=== PATIENT | female | born 1985 | race Caucasian/White ===

== ENCOUNTER 2017-11-06 05:26 | Day surgery (SDC) | payer BC, OTHER ==
[2017-11-04 11:58] LABS: APPEARANCE,URINE SLIGHTLY-CLOUDY; BILIRUBIN,URINE NEGATIVE (NEGATIVE); GLUCOSE, URINE NEGATIVE (NEGATIVE); KETONES,URINE NEGATIVE (NEGATIVE); LEUKOCYTE ESTERASE,URINE MODERATE (NEGATIVE); NITRITE,URINE NEGATIVE (NEGATIVE); PROTEIN,URINE NEGATIVE (NEGATIVE); URINE SPECIFIC GRAVITY 1.018; UROBILINOGEN,URINE NEGATIVE mg/dL (<2.0)
[2017-11-04 11:59] LABS: HEMATOCRIT 40.5 % (36.0-47.0); HEMOGLOBIN 13.7 g/dL (12.0-15.5); HGB HCT DIFFERENCE 0.6; MEAN CORPUSCULAR HEMOGLOBIN 27.8 pg (27.0-33.4); MEAN CORPUSCULAR HGB CONC 33.8 g/dL (32.0-36.0); MEAN CORPUSCULAR VOLUME 82 fl (80-97); RED BLOOD COUNT 4.92 10^6/uL (3.72-5.28); RED CELL DISTRIBUTION WIDTH 14.4 % (11.5-14.0); WHITE BLOOD COUNT 9.1 10^3/uL (4.0-10.5)
[2017-11-04 12:20] LABS: ANION GAP 8 (5-19); BLOOD UREA NITROGEN 13 mg/dL (7-20); CARBON DIOXIDE 27 mmol/L (22-30); CHLORIDE 105 mmol/L (98-107); CREATININE RESULT 0.66 mg/dL (0.52-1.25); GLUCOSE 71 mg/dL (75-110); POTASSIUM 4.6 mmol/L (3.6-5.0); SODIUM 140.4 mmol/L (137-145)
[~2017-11-06 05:26] MED LIST: CEFAZOLIN 1 GM/D5W RTU 1 GM/50 ML RTUPB IV PRN; LACTATED RINGERS 1000 ML IV PRN; LIDOCAINE 0.5% INJ-PF (5 MG/ML) 50 ML SDV SUBCUT PRN
[2017-11-06] MEDS ORDERED: PROPOFOL INJ 200 MG/20 ML VIAL IV ONE (06:56)
[2017-11-06] MEDS ORDERED: ONDANSETRON HCL INJ/PF 4 MG/2 ML SDV ONE (06:56)
[2017-11-06] MEDS ORDERED: MIDAZOLAM 2 MG/2 ML INJ ONE (06:56)
[2017-11-06] MEDS ORDERED: HYDROMORPHONE HCL INJ/PF 2 MG/ML AMPULE ONE (06:57)
[2017-11-06] MEDS ORDERED: DIPHENHYDRAMINE HCL 50 MG/ML VIAL IV PRN (07:36)
[2017-11-06] MEDS ORDERED: MEPERIDINE HCL/PF INJ 25 MG/1 ML DISP.SYRIN IV PRN (07:36)
[2017-11-06] MEDS ORDERED: FENTANYL CITRATE INJ/PF 100 MCG/2 ML AMPUL IV PRN ×3 (07:36)
[2017-11-06] MEDS ORDERED: PROMETHAZINE HCL INJ 25 MG/1 ML VIAL IV PRN (07:36)
[2017-11-06] MEDS ORDERED: KETOROLAC TROMETHAMINE INJ/PF 30 MG/1 ML SDV ONE (08:01)
[2017-11-06] MEDS ORDERED: ACETAMINOPHEN 100 ML IV ONE (08:01)
[2017-11-06] MEDS ORDERED: OXYCODONE-ACETAMINOPHEN 5-325 MG TABLET PO PRN (08:04)
[2017-11-06] MEDS ORDERED: MORPHINE SULFATE 10 MG/ML INJ INJ PRN (08:07)
--- NOTE | 2017-11-06 08:08 | OPERATIVE REPORT E ---
Operative Report NAME: KIM CROCKETT : 1985 AGE: 32Y DATE OF SURGERY: 11/06/2017 ROOM: PREOPERATIVE DIAGNOSES: 1. Endometrial lesion. 2. Hysterosonogram. POSTOPERATIVE DIAGNOSES: 1. Endometrial lesion. 2. Hysterosonogram. 3. Endometrial polyp. PROCEDURE: Hysteroscopic resection endometrial polyp. SURGEON: KISHORE BAL M.D. COMPLICATIONS: None. ANESTHESIA: LMA. FINDINGS: Endometrial polyp approximately 1 cm and a small 4 mm polyp left lateral fundal area of the uterus. INDICATIONS FOR PROCEDURE: Patient had undergone a hysterosalpingogram and an endometrial polyp was encountered with a thickened endometrial stripe noted. Elected to proceed to hysteroscopy for further assessment and remedy. Usual risks of bleeding, infection, anesthesia, and damage to organs and tissues were discussed and the patient understood. DESCRIPTION OF PROCEDURE: The patient was taken to the operating room and placed in the modified lithotomy position. After adequate anesthesia ascertained, prepped and draped in the usual manner for a hysteroscopy. After surgical timeout performed, EUA performed, bladder was left undrained. Tenaculum placed on the anterior lip of the cervix. The cervix readily admitted an operative hysteroscope. Scope was inserted. Both polyps were identified. A monitor device was deployed. Polyps were removed en toto. Bleeding was nil at the completion of the procedure. Specimen sent to pathology. At completion of the procedure, all sponge counts were correct. Patient awakened and taken to recovery room in stable condition. DICTATING PHYSICIAN: KISHORE BAL M.D. [id number] Y#: [id number] ID: [id number] JOB#: [id number] ACCT: [id number] cc:KISHORE BAL M.D. >
[2017-11-06] MEDS ORDERED: PROMETHAZINE HCL INJ 25 MG/1 ML VIAL IM PRN (08:11)
[2017-11-06 10:04] VITALS: BP 109/76
[2017-11-06] MEDS ORDERED: IBUPROFEN 800 MG TABLET PO SCH (14:00)
== END 2017-11-06 10:15 | disposition home or self-care (01) ==
LOC: OROUT 05:26
PROVIDERS: ATTEND Specialist
PROC: 0UB98ZX Excision of Uterus, Via Natural or Artificial Opening Endoscopic, Diagnostic (ICD-10-PCS; principal; 2017-11-06 07:15)
DX: N84.0 Polyp of corpus uteri (principal); J45.990 Exercise induced bronchospasm; Z87.440 Personal history of urinary (tract) infections
CPT/HCPCS: 86900; 86901; 36415; 86850; 85027; 81025; 80048; 81001; 88305 ×2; 58558; J2250; J0690; J1885; J1170; J2405; J2704; J0131; 952